=== PATIENT | female | born 1965 | race Caucasian/White ===

== ENCOUNTER 2017-01-13 18:43 | Emergency (ER) | payer OTHER ==
[~2017-01-13] VITALS: Ht 152.4 cm; Wt 61.4 kg
[2017-01-13 18:53] VITALS: BP 128/82; PULSE 88; RESP 16; O2SAT 99
--- NOTE | 2017-01-13 19:26 | ED.REPORT ---
HPI-Extremity Problem Upper Date of Service Jan 13, 2017 ED Provider: Blaze Pavon DO A 51 year old female with no pertinent medical history presents to the ED complaining of left wrist pain onset 16:00 today. The pt was walking through a sliding door while closing it when her hand became stuck in the handle and the door closed on her wrist. She is now experiencing 4/10 pain at rest but 10/10 pain when she attempts to move the wrist. The pain radiates into her left elbow but not into her shoulder. She has never injured her wrist before. This occurred during an argument with her , but the pt denies assault or feeling unsafe. Nursing Notes Stated Complaint: POSS LEFT WRIST FRACTURE Chief Complaint: Extremity Trauma Nursing Notes Reviewed: Yes Allergies: Coded Allergies: NSAIDS (Non-Steroidal Anti-Inflamma (Verified Allergy, Severe, lightheaded with rinnging in ears, 01/13/17) aspirin (Verified Allergy, Severe, light headed , ears ringing, 01/13/17) Uncoded Allergies: METAL (Allergy, Intermediate, rash, 01/13/17) General Time Seen by MD: 19:19 Chief Complaint Wrist injury left Hx Obtained From: Patient Arrived By: Walk-in Onset Occurred: 1 - 4 hours ago Symptom Duration: Since onset Recent Healthcare: No recent doctor visit, No recent hospitalization Similar Sx Previous: No Past Medical History Past Medical History none reported Past Surgical History none reported Social History Other Social History: Ambulatory Status Independent Review of Systems Constitutional: Denies: Fever Musculoskeletal: Reports: Joint pain (let wrist), Denies: Back pain, Neck pain Skin: Denies Rash Complete sys rev & neg: except as marked. Cardiovascular: Denies: Chest pain GI: Denies: Abdominal pain Physical Exam Initial Vital Signs Vital Signs (First) Date Time Temp Pulse Resp B/P Pulse Ox O2 Delivery O2 Flow Rate FiO2 01/13/17 18:53 36.3 88 16 128/82 99 Room Air Initial VS: Reviewed General/Constitutional: Awake, Alert Neck: Atraumatic, Supple, Full range of motion Respiratory / Chest: Atraumatic, Breath sounds NL, Breath sounds = bilat, No respiratory distress Cardiovascular: Heart rate NL, Regular rhythm, Heart sounds NL Upper Extremity / MS: No deformity Wrist / Hand: No deformity moderate soft tissue swelling and tenderness over the left lateral wrist and ulnar styloid no snuffbox tenderness Skin: Atraumatic, Color NL, No rash, Warm, Dry Neurologic: Oriented X3, Speech NL, No motor deficits, No sensory deficits Head / Eyes: Atraumatic, Normocephalic, PERRL, EOMI ENT: Atraumatic, Airway patent, Mucous membranes moist Abdomen: Atraumatic, Soft, Non-tender Back: Atraumatic, Full range of motion Lower Extremity / Pelvis / MS: Atraumatic, Full range of motion Psychiatric: Affect NL, Mood NL Interpretation & Diagnostics Pulse Oximetry Interpretation Pulse Oximetry Interpretation: 99% on room air Pulse Oximetry: Pulse Ox normal X-Ray Interpretation Xray Interpretation: IMPRESSION: No acute fracture. No osseous lesion. If clinical suspicion and/or symptoms persist, further assessment with repeat plainfilms, or advanced imaging (e.g., CT, MRI, or bone scan) may be helpful for further assessment. Dictated by: Ricci Hull M.D. on 01/13/2017 at 20:24 Approved by: Ricci Hull M.D. on 01/13/2017 at 20:25 X-Ray Ordered: Wrist left Interpretation / Wet Read by: Interpret - Radiologist Procedures Splint Application - Fx Mgt Time: 20:38 Procedure Performed by: ED physician, Firearms Inspector, Under my direct supervis Precise Anatomic Location: left wrist Type of Immobilization: Sugar tong Definitive Fracture Care: Splint, Follow up > 4 days, Performed by me Post-Procedure / Complications: Cap refill normal, Post splint vascular nl, Post splint neuro nl, Condition improved, Tolerated procedure well, Patient stable Re-Eval/Medical Decision Med Decision/Clinical Course X-rays do not definitively identify a fracture. She has no swelling and tenderness and concern for an occult fracture or ligamentous injury. As such we placed her in a well-padded and well sitting ulnar gutter splint after which she was neurovascularly intact. She is placed in a sling. We will refer to primary care or orthopedics for follow-up evaluation 7- 10 days. Short course of [place] provided for pain. routine opiate warnings given Re-Evaluation/Progress : Time of Eval: 20:38 Patient Status: Condition improved Re-Evaluation/Progress Note: Pt rechecked, who is comfortable. Sugar tong is applied. She is informed of her radiology results, diagnosis, and the plan for discharge. The pt understands and agrees with the plan. All questions are addressed at this time. Counseled Regarding: Diagnosis, Lab results, Need for follow-up, When/why to return to ED Discharge & Departure Impression: Primary Impression: Wrist contusion Encounter type: initial encounter Laterality: left Qualified Code: S60.212A - Contusion of left wrist, initial encounter Disposition: Home Discharge Condition All VS Reviewed: Yes Condition: Stable Patient Instructions: Splint Care (ED), Contusions in Adults (ED) Additional Instructions: Wear the wrist splint for one week. Have a recheck in 7 to 10 days. Call ortho and your primary care physician on Saturday to arrange follow up this week. You may need repeat x-rays if the pain continues. Take 1-2 [place] every 6 hours as needed for severe pain. Do not drive, drink alcohol, take other sedating medications, or consume acetaminophen while taking the [place]. Return to the emergency room if you develop any new or worsening symptoms. Referrals: Marina Neves MD (PCP) Stuart Jewell MD Attestation Portions of this note were transcribed by Osbaldo Franz. I, Dr. Pavon personally performed the history, physical exam and medical decision-making; I reviewed and confirmed the accuracy of the information in the transcribed note. Signed by: Ana Patel, 01/13/2017 and 2041. copies to: Marina Neves MD; Stuart Jewell MD, Todd P DO Jan 13, 2017 19:25 OSBALDO FRANZ Jan 13, 2017 20:00
--- NOTE | 2017-01-13 20:26 | DRSVH ---
PROCEDURE: X-RAY LEFT WRIST COMPLETE, MINIMUM THREE VIEWS ([id number]) INDICATIONS: trauma, deformity to left wrist TECHNIQUE: 4 views of the wrist were acquired. COMPARISON: None. FINDINGS: Bones: No fractures or dislocations. No suspicious bony lesions. Scaphoid view: Negative Soft tissues: No suspicious soft tissue calcifications. IMPRESSION: No acute fracture. No osseous lesion. If clinical suspicion and/or symptoms persist, fur ther assessment with repeat plainfilms, or advanced imaging (e.g., CT, MRI, or bone scan) may be help ful for further assessment. Dictated by: Ricci Hull M.D. on 01/13/2017 at 20:24 Approved by: Ricci Hull M.D. on 01/13/2017 at 20:25
[2017-01-13] MEDS ORDERED: _HYDROcodone/APAP 5-325 mg Tablet PO PRN (20:30)
[2017-01-13 20:42] VITALS: BP 119/75; PULSE 88; O2SAT 95
[2017-01-13 21:16] VITALS: BP 119/75; PULSE 88; RESP 16; O2SAT 95
== END 2017-01-13 21:17 | disposition home or self-care (01) ==
LOC: SED 18:43
DX: S60.212A Contusion of left wrist, initial encounter (principal); W23.0XXA Caught, crushed, jammed, or pinched between moving objects, initial encounter; Y93.01 Activity, walking, marching and hiking; Y92.89 Other specified places as the place of occurrence of the external cause; Y99.8 Other external cause status; Z88.8 Allergy status to other drugs, medicaments and biological substances

== ENCOUNTER 2017-05-26 19:22 | Emergency (ER) | payer OTHER ==
[2017-05-26 20:05] VITALS: BP 122/62; PULSE 88; RESP 16; O2SAT 95
[2017-05-26 20:45] VITALS: BP 120/75; PULSE 81; RESP 18; O2SAT 98
[2017-05-26 20:57] LABS: BASOPHILS % (AUTO) 0.9 % (0-3); EOSINOPHILS % (AUTO) 2.6 % (0-5); MONOCYTES % (AUTO) 5.5 % (4-12); Mean Corpuscular Hemoglobin 29.8 pg (27.0-35.0); Mean Corpuscular Volume 90.4 fL (81-100); NEUTROPHILS % (AUTO) 65.9 % (40-74); Platelet Count 256 bil/L (150-400)
[2017-05-26 21:18] LABS: TROPONIN T 0.01 ug/L (0.0-0.011)
[2017-05-26 22:07] VITALS: BP 130/73; PULSE 92; RESP 20; O2SAT 96
--- NOTE | 2017-05-26 22:10 | ED.REPORT ---
HPI-Syncope Date of Service May 26, 2017 ED Provider: Michel Marie MD The pt is a 51 y/o female w/ a hx of depression and alcoholism presenting to the ED via EMS due to a syncopal episode. She was intoxicated and having a dispute w/ her daughter, sat down, and passed out. The daughter felt a pulse but was advised to perform CPR and the pt woke up after the third round of CPR. The pt was also experiencing agonal respirations, per the daughter. Per EMS, the pt had a GCS of 15, BP of 142/90, glucose of 92, HRs 90-100, and SaO2 100%. The pt denies any pain, fevers, peripheral edema, blood in stools, hematuria, suicidal ideations, any recent infections, or a hx of seizures. Nursing Notes Stated Complaint: SYNCOPE Chief Complaint: Syncope Nursing Notes Reviewed: Yes ([employer], [employer] not reconciled) Allergies: Coded Allergies: NSAIDS (Non-Steroidal Anti-Inflamma (Verified Allergy, Severe, lightheaded with rinnging in ears, 05/26/17) aspirin (Verified Allergy, Severe, light headed , ears ringing, 05/26/17) Uncoded Allergies: METAL (Allergy, Intermediate, rash, 01/13/17) General Time Seen by Provider: 21:10 Chief Complaint Lost consciousness Hx Obtained From: Patient, EMS Arrived By: Ambulance Onset Occurred: Just prior to arrival Recent Healthcare: No recent doctor visit, No recent hospitalization Past Medical History Past Medical History Depression Alcoholism Past Surgical History none reported Social History Other Social History: Good social support, Ambulatory Status Independent Review of Systems Constitutional: Denies: Fever Cardiovascular: Denies: Edema GI: Denies: Bloody/tarry stool Musculoskeletal: Denies: Back pain, Neck pain Psychiatric: Denies: Suicidal ideation Complete sys rev & neg: except as marked. Additional Review of Systems Female: Denies: Hematuria Physical Exam Initial Vital Signs Vital Signs (First) Date Time Temp Pulse Resp B/P Pulse Ox O2 Delivery O2 Flow Rate FiO2 05/26/17 20:05 88 16 122/62 95 Room Air 05/26/17 22:07 36.4 Initial VS: Reviewed, Vital signs normal Head / Eyes: Atraumatic, Normocephalic, PERRL ENT: Mucous membranes moist, Conjunctiva normal, No scleral icterus Neck: Supple, Non-tender, Full range of motion Upper Extremities: Vascular intact, Neuro intact, No swelling, No tenderness General/Constitutional: Awake, Alert Tearful Smells of alcohol No visible signs of trauma The pt did not bite her tongue Respiratory / Chest: Atraumatic, Breath sounds NL, Breath sounds = bilat Cardiovascular: Heart rate NL, Regular rhythm, Heart sounds NL, Peripheral circulation NL Lower Extremity / Pelvis / MS: Atraumatic, Inspection NL, Full range of motion Neurologic: Oriented X3, No motor deficits, No sensory deficits Psychiatric: Not suicidal Pt cooperates and nods yes or no Will not engage Interpretation & Diagnostics Lab Results Interpretation Result Diagram: 05/26/17204505/26/172045 Test 05/26/17 20:46 White Blood Count 5.8th/mm3 (3.8-10.1) Red Blood Count 4.50mil/mm3 (3.90-5.20) Hemoglobin 13.4g/dL (12.0-15.6) Hematocrit 40.7% (35.0-46.0) Mean Corpuscular Volume 90.4fL (81-100) Mean Corpuscular Hemoglobin 29.8pg (27.0-35.0) Mean Corpuscular Hemoglobin Concent 32.9% (32.0-37.0) Red Cell Distribution Width 13.5% (12.3-15.4) Platelet Count 256bil/L (150-400) Neutrophils (%) (Auto) 65.9% (40-74) Lymphocytes (%) (Auto) 24.8% (14-46) Monocytes (%) (Auto) 5.5% (4-12) Eosinophils (%) (Auto) 2.6% (0-5) Basophils (%) (Auto) 0.9% (0-3) Sodium Level 145mEq/L (134-144) Potassium Level 3.7mEq/L (3.5-5.2) Chloride Level 102mEq/L (97-108) Carbon Dioxide Level 23mmol/L (18-29) Blood Urea Nitrogen 11mg/dL (6-24) Creatinine 0.63mg/dL (0.57-1.00) Estimat Glomerular Filtration Rate 143mL/min (>59) Glucose Level 87mg/dL (60-99) Calcium Level 9.0mg/dL (8.5-10.1) Total Bilirubin 0.2mg/dL (0.0-1.2) Aspartate Amino Transf (AST/SGOT) 20U/L (0-50) Alanine Aminotransferase (ALT/SGPT) 14U/L (0-32) Alkaline Phosphatase 77U/L (25-150) Troponin T 0.010ug/L (0.0-0.011) Total Protein 7.8g/dL (6.4-8.4) Albumin 4.7g/dL (3.4-5.0) Hold Lima Top Tube Received (Received) Alcohols 190mg/dL (0-10) Lab Results Interpretation: CBC normal CMP normal Troponin normal Alcohol elevated ECG Interpretation ECG Interpretation: Rate 71 NSR Time: 20:11 Re-Eval/Medical Decision Med Decision/Clinical Course This is a 51-year-old female presents after a syncopal episode by EMS. The patient does not really want to be years not terribly cooperative although she will interact with me and answer very limited questions. She had some sort of argument, was intoxicated and alcohol, and a brief witnessed syncopal episode. Apparently 911 was called and CPR was done for a few seconds and the patient immediately waking up-although was notable that the people initiated CPR did feel a pulse initiating CPR, so according to EMS there was not really and formal arrest. She has no complaints and does not think she is to be alert. He denies being suicidal. She is quite tearful and upset about being brought to the emergency department. She smells of alcohol, although she is not ataxic and her speech is not slurred. Her exam is normal. She does not have chest wall tenderness-and she adamantly refuses a chest x-ray. She has no lines of heart failure, no clinical findings of DVT or PE. She is normal with no preexcitation syndrome or findings of a dangerous indicator for syncope as a cardiac arrhythmia. Lab is notable only for elevated EtOH. Patient declines [employer] evaluation. I am not finding indication that additional testing is indicated. Patient wishes to be discharged in company of family. She is discharged in stable condition. Source of Hx: Old records, EMS Re-Evaluation/Progress : Time of Eval: 22:15 Re-Evaluation/Progress Note: Pt rechecked. Informed pt of plan for treatment. Pt understands and agrees with plan for treatment. F/U instructions and RTER warnings given. All questions addressed. Differential Diagnosis: Positive: Alcohol abuse, Vasovagal syncope, Negative: Abdominal aortic aneurysm, Acute coronary syndrome, Anemia, Anxiety reaction, Arrhythmia, Cerebrovascular accident, Chest pain, acute, Dysrhythmia, Electrolyte disorder, Head trauma, Intracranial bleed, Malingering , Myocardial infarction, Pneumothorax, Prolonged QT syndrome, Pulmonary embolus , Seizure, Subarachnoid hemorrhage Counseled Regarding: Diagnosis, Need for follow-up, When/why to return to ED Discharge & Departure Impression: Primary Impression: Syncope Syncope type: unspecified Qualified Code: R55 - Syncope and collapse Additional Impression: Alcohol intoxication Complication of substance-induced condition: uncomplicated Qualified Code: F10.120 - Alcohol abuse with intoxication, uncomplicated Disposition: Home Discharge Condition All VS Reviewed: Yes Condition: Stable Additional Instructions: 1. The medical term for passing out is syncope. A dangerous cause of your syncope was not identified - your heart tests and blood tests were normal. 2. Stay away from alcohol. 3. No driving tonight. 4. Return if new or worsening symptoms. 5. Follow up with Dr. Neves as needed Referrals: [facility] Scribe Attestation Portions of this note were transcribed by Erich Neves. I, Dr. Marie personally performed the history, physical exam and medical decision-making; I reviewed and confirmed the accuracy of the information in the transcribed note. copies to: [facility] Michel Marie MD May 26, 2017 22:10 Erich Neves May 26, 2017 22:17
== END 2017-05-26 22:16 | disposition home or self-care (01) ==
LOC: SED 19:22 → EDBD 19:22 → EDUNIT# 19:22 → SED 22:16
DX: R55 Syncope and collapse (principal); F10.120 Alcohol abuse with intoxication, uncomplicated; F32.9 Major depressive disorder, single episode, unspecified; Z88.8 Allergy status to other drugs, medicaments and biological substances
CPT/HCPCS: 36415; 80053; 84484; 85025; 93005; 99285; G0480